=== PATIENT | female | born 1955 | race Caucasian/White ===

== ENCOUNTER 2019-03-25 19:34 | Emergency (ER) | payer MEDICARE, BC ==
[2019-03-25] MEDS ORDERED: Aspirin 81 mg CHEW TAB* 81 MG TAB.CHEW PO ONE (19:51)
[2019-03-25 20:18] LABS: ABS Basophils 0.1 10^3/ul (0-0.2); ABS Eosinophils 0.4 10^3/ul (0-0.6); ABS Lymphocytes 2.5 10^3/ul (1.0-4.8); ABS Monocytes 0.6 10^3/ul (0-0.8); ABS Neutrophils 4.5 10^3/ul (1.5-7.7); Eosinophil % 5.1 %; Hematocrit 42 % (35-47); Hemoglobin 14.4 g/dL (12.0-16.0); Lymphocyte % 31.1 %; Mean Corpuscular HGB Conc 34 g/dL (31-36); Mean Corpuscular Hemoglobin 31 pg (27-31); Mean Corpuscular Volume 89 fL (80-97); Mean Platelet Volume 7.7 fL (7.4-10.4); Nucleated Red Blood Cells % 0.1; Platelet Count 252 10^3/uL (150-450); Red Blood Count 4.71 10^6 /uL (3.70-4.87); Red Cell Distribution Width 13 % (10-15); White Blood Count 8.1 10^3/uL (3.5-10.8)
--- OUTSIDE RECORDS SUMMARY | 2019-03-25 20:27 | XMS REPORT | Summary of Care ---
:1955 Author Organization [facility] Address [address] [place] [address] Care Team Providers Name Role Phone Giovani Fragoso MD Primary Care Provider Reason for Visit Reason Comments Follow Up f/u B/P Encounter Details Date Type Department Care Team Description 03/11/2019 Office Visit [facility] Beatris Mulligan, Essential hypertension Practice [facility] [employer] (Primary Dx) [address] [facility] [address] [facility] [address] [place] [address] [phone] Allergies Active Allergy Reactions Severity Noted Date Comments No Known Allergies Other 10/23/2007 documented as of this encounter (statuses as of 03/11/2019) Medications Medication Sig Dispensed Refills Start Date End Date Status metoprolol succinate Take 1 Tab by 90 Tab 3 04/24/2018 Active (TOPROL XL) 50 MG Oral mouth DAILY. TABLET SR 24 HRIndications: Essential hypertension Additional information Patient taking differently: 25 mg Oral DAILY, Reported on 11/20/2018 8:25 AM triamcinolone Apply twice 80 g 5 09/08/2018 Active (KENALOG,ARISTOCORT) 0.1 % daily Apply externally Cream levothyroxine (SYNTHROID) Take 1 Tab by 90 Tab 1 11/20/2018 Active 88 MCG Oral Tab mouth BEFORE BREAKFAST. lisinopril (PRINIVIL, Take 1 Tab by 30 Tab 5 03/11/2019 Active ZESTRIL) 10 MG Oral Tab mouth TWICE DAILY. citalopram (CELEXA) 20 MG Take 1 Tab by 90 Tab 3 04/24/2018 Discontinued Oral TabIndications: mouth DAILY. 019 Anxiety and depression lisinopril (PRINIVIL, Take 1 Tab by 30 Tab 5 10/20/2018 Discontinued ZESTRIL) 10 MG Oral Tab mouth DAILY. 019 (Reorder) documented as of this encounter (statuses as of 03/11/2019) Active Problems Problem Noted Date White coat syndrome with hypertension 08/15/2009 Acquired hypothyroidism 05/09/2008 Overview: Post -surgical Management Dr Min H[facility] Cancer of thyroid 11/26/2007 Overview: S/p subtotal thyroidectomy Dr Samaniego 12/30/07 Papillary carcinoma of thyroid Dr Min Hightower 01/28. Essential hypertension 10/23/2007 Panic Disorder 10/23/2007 Major depression in remission 10/23/2007 NEPHROLITHIASIS 10/23/2007 documented as of this encounter (statuses as of 03/11/2019) Resolved Problems Problem Noted Date Resolved Date Erythema migrans (Lyme disease) 01/04/2009 08/15/2009 Overview: 12/29. S/p doxycycline Chest pain, unspecified 02/01/2004 01/05/2008 Overview: Stress test negative documented as of this encounter (statuses as of 03/11/2019) Immunizations Name Administration Dates Next Due Adacel TdaP 03/09/2007 Influenza (IM) Preservative Free 03/11/2019, 04/24/2018, 04/14/2014, 05/11/2010 documented as of this encounter Social History Tobacco Use Types Packs/Day Years Used Date Never Smoker Smokeless Tobacco: Never Used Alcohol Use Drinks/Week oz/Week Comments Yes 3 Standard drinks or equivalent 3.0 Sex Assigned at Date Recorded Not on file Job Start Date Occupation Industry Not on file Not on file Not on file Travel History Travel Start Travel End No recent travel history available. documented as of this encounter Last Filed Vital Signs Vital Sign Reading Time Taken Comments Blood Pressure 190/110 03/11/2019 9:57 AM EDT Pulse 116 03/11/2019 9:57 AM EDT Temperature - - Respiratory Rate - - Oxygen Saturation 99% 03/11/2019 9:57 AM EDT Inhaled Oxygen Concentration - - Weight 64.9 kg (143 lb) 03/11/2019 9:57 AM EDT Height 162.6 cm (5' 4") 03/11/2019 9:57 AM EDT Body Mass Index 24.55 03/11/2019 9:57 AM EDT documented in this encounter Patient Instructions Patient InstructionsBeatris Vega FNP - 03/11/2019 9:40 AM EDTYou must take the lisinopril. Take twice a day. You are at risk for a stroke. Contnue metoprolol but take whole 50 mg tab. Follow up as needed. Send in BP results. Flu shot today. 12: 49 PM EDT documented in this encounter Progress Notes Beatris Vega FNP - 03/11/2019 9:40 AM EDT PATIENT: Dian Bush : 1955 DATE OF SERVICE: 03/11/2019 Chief Complaint Patient presents with Follow Up f/u B/P SUBJECTIVE: Dian Bush is a 64-y.o. female who is here for follow up of hypertension. She has white coat but home readings are elevated at times and she is now with headache and under a lot ofstress so might be willing to take BP meds. She has been fearful of side effects and toxins in meds. Now only on 25 mg metoprolol and just increased this from 12.5mg. She has not taken lisinopril as directed. The patient denies cough, chest pain, dyspnea, wheezing or hemoptysis. No dizziness or palpitations. Patient Active Problem List Diagnosis Date Noted White coat syndrome with hypertension 08/15/2009 Acquired hypothyroidism 05/09/2008 Post -surgical Management Dr Min Hightower [facility] Cancer of thyroid ([facility]) 11/26/2007 S/p subtotal thyroidectomy Dr Samaniego 12/30/07 Papillary carcinoma of thyroid Dr Min Hightower 01/28. Essential hypertension 10/23/2007 Panic Disorder 10/23/2007 Major depression in remission ([facility]) 10/23/2007 NEPHROLITHIASIS 10/23/2007 Current Outpatient Medications Medication Sig levothyroxine (SYNTHROID) 88 MCG Oral Tab Take 1 Tab by mouth BEFORE BREAKFAST. lisinopril (PRINIVIL, ZESTRIL) 10 MG Oral Tab Take 1 Tab by mouth TWICE DAILY. metoprolol succinate (TOPROL XL) 50 MG Oral TABLET SR 24 HR Take 1 Tab by mouth DAILY. (Patient taking differently: Take 25 mg by mouth DAILY.) triamcinolone (KENALOG,ARISTOCORT) 0.1 % Apply externally Cream Apply twice daily No current facility-administered medications for this visit. OBJECTIVE: BP (!) 190/110 (BP Location: Left arm, Patient Position: Sitting) | Pulse (!) 116 | Ht 5' 4" (1.626 m) | Wt 143 lb (64.9 kg) | SpO2 99% | BMI 24.55 kg/m She is alert and in no distress. Chest is clear, no wheezing or rales. Normal symmetric air entry throughout both lung granados. Heart RRR. BP Readings from Last 3 Encounters: 03/11/19 (!) 190/110 11/20/18 (!) 160/94 10/20/18 (!) 180/110 ASSESSMENT: ICD-9-CM ICD-10-CM 1. Essential hypertension, poorly controlled and noncompliant with meds. 401.9 I10 I advised follow up in 2-3 weeks and she refused and said she would monitor at home and send in somereadings. Patient Instructions You must take the lisinopril. Take twice a day. You are at risk for a stroke. Contnue metoprolol but take whole 50 mg tab. Follow up as needed. Send in BP results. Flu shot today. Author: ASIF Harvey 03/11/2019 12:50 documented in this encounter Plan of Treatment Health Maintenance Due Date Last Done Comments ZOSTER IMMUNIZATION SERIES (1 2003 of 2) FALL RISK ASSESSMENT 2018 PNEUMOCOCCAL 65+YRS (1 of 2 - 2018 PCV13) INFLUENZA VACCINE (#1) 2019 04/24/2018, 04/14/2014, 05/11/2010 DEPRESSION SCREENING 04/24/2019 04/24/2018, 04/24/2018 LIPID DISORDER SCREENING 10/21/2019 10/20/2018, 03/25/2007 HPV IMMUNIZATION SERIES Aged Out No longer eligible based on patient's age to complete this topic MENINGOCOCCAL VACCINE IMM Aged Out No longer eligible based on patient's age to complete this topic documented as of this encounter Goals Goal Patient Goal Associated Recent Patient-Stated? Author Type Problems Progress Blood Pressure Blood Pressure 190/110 No Silvia, Cash 150/90 (03/11/2019 ASIF Spear 9:57 AM EDT) Note: This is an individualized treatment (blood pressure) goal for Dian Bush: Displayed above (on the left) is your goal for blood pressure control. Your most recent blood pressure is also shown above, on the right. You should try to achieve blood pressures that are lower than your goal listed above (on the left). Depression screen Depression 3 (04/24/2018 7:35 AM No Beatris Vega FNP (PHQ-9) total score < 5 EDT) Note: This is an individualized treatment (depression) goal for Dian Bush: Displayed above is your goal for a depression screening (PHQ-9) score that would indicate good control of your depression. Keep a regular sleep schedule Lifestyle No Beatris Vega FNP Note: This is an individualized lifestyle goal for Dian Bush: Please maintain a regular sleep schedule. This may help with some symptoms of depression. Take all prescribed medications as Self-management No Beatris Vega FNP directed Note: This is an individualized self-management goal for Dian Bush: Please take all prescribed medications as directed. 1. Do not skip doses. If you cannot afford your medications, talk with your doctor. 2. Use a pill reminder system such as a pill box if needed. Your pharmacist can help you with this. 3. Contact your Pharmacy 5 days before your medication runs out. If you cannot take your medications for any reasons, talk with your doctor. 4. Please bring all of your medication bottles and inhalers (or a list of all your medications/inhalers) with you to every visit. Potential barriers to meeting all of your care plan goals will continue to be addressed on an ongoing basis. documented as of this encounter Results Not on filedocumented in this encounter Visit Diagnoses Diagnosis Essential hypertension - Primary Unspecified essential hypertension documented in this encounter Insurance Payer Benefit Plan / Subscriber ID Effective Dates Phone Address Type Group MEDICARE MEDICARE PART A & xxxxxxxxxxx 2018-Present Medicare B LYNNUS ELZIABETHBS LYNNUS ELIZABETHBS xxxxxxxxxxxx 2014-Present [employer] Guarantor Name Account Type Relation to Date of Phone Billing Patient Address Dian Bush Personal/Family 1955 [phone] [address] (Home) [facility] [phone] [place], [place] (Work) [id number] documented as of this encounter
[2019-03-25 20:40] LABS: CKMB ng/mL 1.5 ng/mL (0.6-6.3)
--- NOTE | 2019-03-25 20:40 | ED ---
Hypertension - HPI Summary HPI Summary: 64 year old F [facility] accompanied by complaining of hypertension and not feeling well since measuring her blood pressure this evening which was 235 systolic. PMHx: hypertension, hypothyroidism and anxiety. Patient states she has been taking metoprolol 25 mg QD for 14 years. Patient states that the metoprolol 25 mg QD was not lowering her blood pressure, as her blood pressure would be in the 180s or 190s systolic. Patient states her doctor recently increased her dose of metoprolol to 50 mg daily QD. Patient states she has been taking half a pill in the morning, and the other half in the evening as the pharmacist said this would be fine. Patient states she also started taking lisinopril 10 mg BID on 03/11/19. Patient states that on 03/12/19, she measured her blood pressure with a new blood pressure cuff and it was 80s systolic, 60s diastolic. Patient states it usually takes her 2 months for her to adjust to her medications. Patient states she has been getting facial and tongue numbness, pressure under the top of her scalp, and hot flashes since changing her medications. She also states she has had these symptoms of numbness and hot flashes off and on for years. Patient denies chest pain. Patient was seen by primary care provider last week and everything was "normal" . Pt feels her symptoms are aggravated by medications for her hypertension. Symptoms alleviated by nothing. Patient states she had 1 glass of wine tonight. Vital signs while in room: HR 80 bpm, BP 2019/112, O2 sat 98% Home Medications Medication Instructions Recorded Confirmed Type Levothyroxine Sodium 88 mg PO DAILY 03/25/19 03/25/19 History Lisinopril 10 mg PO DAILY 03/25/19 03/25/19 History - History of Current Complaint Chief Complaint: EDHypertension Stated Complaint: HIGH BP PER PT Time Seen by Provider: 03/25/19 19:51 Hx Obtained From: Patient, Family/Package Crimper - Onset/Duration: Started Hours Ago, Atraumatic, Still Present Timing: Constant Reported Blood Pressure Prior To Arrival: systolic BP 235 at home Aggravating Factor(s): Other: - pt believes her medication for hypertension Alleviating Factor(s): Nothing Associated Signs & Symptoms: Negative - chest pain, Anxiety/Stress, Tingling, Other: - facial and tongue numbness, pressure under the top of her scalp, and hot flashes Current Medications: ACEI, Beta Francisco - Allergies/Home Medications Allergies/Adverse Reactions: Allergies Allergy/AdvReac Type Severity Reaction Status Date / Time No Known Allergies Allergy Verified 03/25/19 19:44 PMH/Surg Hx/FS Hx/Imm Hx Previously Healthy: No Endocrine/Hematology History: Reports: Hx Thyroid Disease Cardiovascular History: Reports: Hx Hypertension GI History: Reports: Hx Gall Bladder Disease - gallsones History: Reports: Hx Kidney Stones Sensory History: Reports: Hx Contacts or Glasses Opthamlomology History: Reports: Hx Contacts or Glasses Psychiatric History: Reports: Hx Anxiety - Surgical History Surgery Procedure, Year, and Place: total thyroidectomy. ectopic . C- sections x3 Infectious Disease History: No Infectious Disease History: Denies: Traveled Outside the [place] in Last 30 Days - Family History Known Family History: Positive: Cardiac Disease - [place] - Social History Lives: With Family Alcohol Use: Occasionally Alcohol Amount: wine Hx Substance Use: No Substance Use Type: Reports: None Hx Tobacco Use: No Smoking Status (MU): Never Smoked Tobacco Review of Systems Positive: Other - hot flashes, not feeling well Positive: Other - hypertension. Negative: Chest Pain Respiratory: Negative Gastrointestinal: Negative Positive: no symptoms reported Skin: Negative Neurological: Other - facial and tongue numbness, pressure under the top of her scalp; negative-headache Positive: Anxious - pt states she is anxious All Other Systems Reviewed And Are Negative: Yes Physical Exam - Summary Physical Exam Summary: Appearance: ill-appearing, no acute pain distress, thin. She was tearful. Skin: Warm, color reflects adequate perfusion, dry Head: Normal Head/Face inspection, atraumatic Eyes: Conjunctiva clear, pupils midpoint, EOMI, no nystagmus ENT: Normal inspection Neck: Supple, no nodes, no JVD Respiratory: Lungs clear, normal breath sounds, no respiratory distress Cardio: RRR, No murmur, pulses normal, brisk capillary refill Abdomen: Soft, nontender Bowel sounds: Present Musculoskeletal: Strength Intact/ROM intact, no calf tenderness, no edema. Psychological: Normal Neuro: Alert, Motor 5/5, sensation intact to light touch, speech clear and coherent, no facial droop, able to ambulate independentlly without limp, muscle tone normal, no focal deficit GCS: 15 Triage Information Reviewed: Yes Vital Signs On Initial Exam: Initial Vitals Temp Pulse Resp BP Pulse Ox 98.4 F 101 20 238/126 100 03/25/19 19:36 03/25/19 19:36 03/25/19 19:36 03/25/19 19:36 03/25/19 19:36 Vital Signs Reviewed: Yes Procedures - Sedation Patient Received Moderate/Deep Sedation with Procedure: No Diagnostics - Vital Signs Vital Signs Temp Pulse Resp BP Pulse Ox 03/25/19 19:36 98.4 F 101 20 238/126 100 - Laboratory Lab Results: Lab Results 03/25/19 Range/Units 20:05 WBC 8.1 (3.5-10.8) 10^3/uL RBC 4.71 (3.70-4.87) 10^6 /uL Hgb 14.4 (12.0-16.0) g/dL Hct 42 (35-47) % MCV 89 (80-97) fL MCH 31 (27-31) pg MCHC 34 (31-36) g/dL RDW 13 (10-15) % Plt Count 252 (150-450) 10^3/uL MPV 7.7 (7.4-10.4) fL Neut % (Auto) 55.1 % Lymph % (Auto) 31.1 % Bennett % (Auto) 7.8 % Eos % (Auto) 5.1 % Baso % (Auto) 0.9 % Absolute Neuts (auto) 4.5 (1.5-7.7) 10^3/ul Absolute Lymphs (auto) 2.5 (1.0-4.8) 10^3/ul Absolute Monos (auto) 0.6 (0-0.8) 10^3/ul Absolute Eos (auto) 0.4 (0-0.6) 10^3/ul Absolute Basos (auto) 0.1 (0-0.2) 10^3/ul Absolute Nucleated RBC 0.0 10^3/ul Nucleated RBC % 0.1 Result Diagrams: 03/25/19 20:05 03/25/19 20:01 Lab Statement: Any lab studies that have been ordered have been reviewed, and results considered in the medical decision making process. - Radiology CXR Radiology Interpretation Completed By: ED Physician Summary of Radiographic Findings: No acute process. Pending official report - CT Brain CT Interpretation Completed By: Radiologist Summary of CT Findings: 1. No acute intracranial abnormality. 2. Mild chronic small vessel ischemic disease. ED physician has reviewed this report. - EKG 1946 Cardiac Rate: NL - 92 EKG Rhythm: Sinus Rhythm ST Segment: Non-Specific Ectopy: None EKG Comparison: No Significant Change - 12/08/07 Summary of EKG Findings: An EKG at 19:47 reveals sinus rhythm, nml AV/IV CT, nml QTc, and nml axis. No acute changes. Poor R wave progression V1-V3. Similar to prior EKG on 12/08/07. ED MD has reviewed and interpreted this EKG. Re-Evaluation - Re-Evaluation First Eval Re-Evaluation Time: 22:12 Change: Improved Comment: Pt still concerned about side effects of medications. Pt has no ARAIZA, no CP, no SOB, no weakness, no speech difficulties. Given results of her CT. remains in the room. Pt given labetalol 10mg IV x1 again, and Ativan 1mg po. Pt agrees to both. Second Eval Re-Evaluation Time: 22:20 Change: Improved Comment: BP is 140/85. Pt and agree with DC and to follow up with PCP regarding further BP medication management. Hypertension Course/Dx - Course Course Of Treatment: 64 year old F complains of hypertension, facial and tongue numbness, pressure located under the top of her scalp, and hot flashes since increasing her dose of metoprolol to 50 mg QD and started taking lisinopril 10 mg BID. Upon exam, the patient is very hypertensive, tearful and thin but no cardio, pulmonary or neurologic findings on exam. Patient medications reviewed this visit. Nurses notes reviewed. Allergies noted. High blood pressure noted. Bloodwork results with no significant abnormalities except for potassium 3.4 and BUN/creatinine 31.0. Her TSH and d-dimer are normal. Toxicology results with no significant abnormalities, meaning alcohol level is <10, with pt having a glass of wine with dinner. An EKG at 19:47 reveals sinus rhythm, nml AV/IV CT , nml QTc, and nml axis. No acute changes. Similar to prior EKG on 12/08/07. CXR shows no acute process, ED MD preliminary reading. CT Brain shows, per radiologist: 1. No acute intracranial abnormality. 2. Mild chronic small vessel ischemic disease. In the ED course, the patient was given aspirin 324 mg PO and labetalol 10 mg IV x2, and Ativan 1 mg PO. BP was 140/85 after those medications administered, and pt was DC home with instructions to f/u with her PCP for further medication management. - Diagnoses Differential Diagnosis/HQI PQRI: Cerebral Bleed, Hypertensive Crisis, Hyperthyroidism, Myocardial Infarction, Other - CVA Provider Diagnoses: Hypertensive urgency, Paresthesia, Hypokalemia - Critical Care Time Critical Care Time: 30-74 min - 30 mins Discharge ED - Sign-Out/Discharge Documenting (check all that apply): Patient Departure - Discharge Plan Condition: Stable Disposition: HOME Patient Education Materials: Hypertensive Crisis (ED) Referrals: Giovani Fragoso MD [Primary Care Provider] - 1 Day Additional Instructions: We gave you labetalol 10mg IV twice and an ativan 1mg tablet while you were in the ER. Your blood pressure came down to 140/85 with a pulse of 63. Your CT scan did not show any sign of a stroke or acute abnormalities. Have definite follow up with Dr. Fragoso. Please return to the ER if any new or worsening symptoms. - Billing Disposition and Condition Condition: STABLE Disposition: Home - Attestation Statements Document Initiated by Osbaldoibe: Yes Documenting Scribe: Nadia Paulino Provider For Whom Fern is Documenting (Include Credential): Jacinta Lopez MD Scribe Attestation: Nadia Luciano, scribed for Jacinta Lopez MD on 04/18/19 at 1715. Scribe Documentation Reviewed: Yes Provider Attestation: The documentation as recorded by the Nadia piper accurately reflects the service I personally performed and the decisions made by me, Jacinta Lopez MD Status of Scribe Document: Viewed
[2019-03-25 20:41] LABS: ALT 17 U/L (7-52); AST 17 U/L (13-39); Albumin 4.6 g/dL (3.2-5.2); Albumin/Globulin Ratio 1.6 (1-3); Alkaline Phosphatase 53 U/L (34-104); Anion Gap 8 mmol/L (2-11); Blood Urea Nitrogen 22 mg/dL (6-24); CO2 Carbon Dioxide 28 mmol/L (22-32); Calcium 9.5 mg/dL (8.6-10.3); Chloride 103 mmol/L (101-111); Creatine Kinase 58 U/L (10-223); EGFR African American 99.7 (>60); EGFR Non-African American 82.4 (>60); Globulin 2.8 g/dL (2-4); Glucose 100 mg/dL (70-100); Magnesium 2.2 mg/dL (1.9-2.7); Potassium 3.4 mmol/L (3.5-5.0); Sodium 139 mmol/L (135-145); Total Protein 7.4 g/dL (6.4-8.9)
[2019-03-25 20:55] LABS: INR 0.94 (0.82-1.09)
[2019-03-25 20:55] LABS: TSH (Thyroid Stimulating Horm) 0.99 mcIU/mL (0.34-5.60)
[2019-03-25] MEDS ORDERED: Labetalol IV* 5 MG/ML 20 ML VIAL IV PUSH ONE ×2 (20:55→22:02)
[2019-03-25 20:56] LABS: Activated Partial Thrombo Time 30.6 seconds (26.0-38.0)
[2019-03-25 21:34] LABS: Alcohol < 10 mg/dL (<10)
[2019-03-25] MEDS ORDERED: LORazepam TAB(*) 1 MG PO ONE (22:03)
[2019-03-25 22:36] VITALS: BP 140/85
== END 2019-03-25 22:45 | disposition home or self-care (01) ==
LOC: ED 19:34
DX: I16.0 Hypertensive urgency (principal); R20.2 Paresthesia of skin; Z79.899 Other long term (current) drug therapy; E03.9 Hypothyroidism, unspecified; Z87.442 Personal history of urinary calculi
CPT/HCPCS: 36415; 70450; 71045; 80053; 80320; 82550; 82553; 83605; 83735; 83880; 84443; 84484; 85025; 85379; 85610; 85730; 93005; 96374; 96376; 99284; A9270-GY; G0480

== ENCOUNTER 2019-04-09 15:12 | Emergency (ER) | payer MEDICARE, BC ==
--- OUTSIDE RECORDS SUMMARY | 2019-04-09 15:29 | XMS REPORT | Summary of Care ---
:1955 Author Organization [facility] Address [address] [address] Care Team Providers Name Role Phone Giovani Fragoso Primary Care Provider Reason for Visit Reason Comments Anxiety Patient states her blood pressure is extremely high when she is anxious. Encounter Details Date Type Department Care Team Description 04/07/2019 Office Visit [place] [facility] Giovani Fragoso, Essential hypertension (Primary Dx); Medicine Hypokalemia; [address] [facility] Panic Disorder; [place], [place] [id number] [place] [id number] Moderate episode of recurrent major depressive disorder (HCC); [phone] Situational anxiety; White coat syndrome with hypertension Allergies Active Allergy Reactions Severity Noted Date Comments No Known Allergies Other 10/23/2007 documented as of this encounter (statuses as of 04/07/2019) Medications Medication Sig Dispensed Refills Start Date End Date Status triamcinolone Apply twice 80 g 5 09/08/2018 Active (KENALOG,ARISTOCORT daily ) 0.1 % Apply externally Cream levothyroxine Take 1 Tab 90 Tab 1 11/20/2018 Active (SYNTHROID) 88 MCG by mouth Oral Tab BEFORE BREAKFAST. lisinopril Take 1 Tab 30 Tab 5 04/07/2019 Active (PRINIVIL, ZESTRIL) by mouth 10 MG Oral Tab EVERY MORNING. metoprolol Take 0.5 90 Tab 3 04/07/2019 Active succinate (TOPROL Tabs by XL) 50 MG Oral mouth TWICE TABLET SR 24 DAILY. HRIndications: Essential hypertension metoprolol Take 1 Tab 90 Tab 3 04/24/2018 Discontinued succinate (TOPROL by mouth 9 (Dose Adjustment) XL) 50 MG Oral DAILY. TABLET SR 24 HRIndications: Essential hypertension lisinopril Take 0.5 30 Tab 5 03/16/2019 Discontinued (PRINIVIL, ZESTRIL) Tabs by 9 (Dose Adjustment) 10 MG Oral Tab mouth DAILY. documented as of this encounter (statuses as of 04/07/2019) Active Problems Problem Noted Date White coat syndrome with hypertension 08/15/2009 Acquired hypothyroidism 05/09/2008 Overview: Post -surgical Management Dr Min Hightower [facility] Cancer of thyroid 11/26/2007 Overview: S/p subtotal thyroidectomy Dr Samaniego 12/30/[address] of thyroid [address] Min Hightower 01/28. Essential hypertension 10/23/2007 Panic Disorder 10/23/2007 Moderate episode of recurrent major depressive disorder 10/23/2007 NEPHROLITHIASIS 10/23/2007 documented as of this encounter (statuses as of 04/07/2019) Resolved Problems Problem Noted Date Resolved Date Erythema migrans (Lyme disease) 01/04/2009 08/15/2009 Overview: 12/29. S/p doxycycline Chest pain, unspecified 02/01/2004 01/05/2008 Overview: Stress test negative documented as of this encounter (statuses as of 04/07/2019) Immunizations Name Administration Dates Next Due Adacel [...] Sign Reading Time Taken Comments Blood Pressure 170/110 04/07/2019 2:27 PM EDT Pulse 78 04/07/2019 2:27 PM EDT Temperature - - Respiratory Rate - - Oxygen Saturation - - Inhaled Oxygen Concentration - - Weight 65.3 kg (144 lb) 04/07/2019 2:27 PM EDT Height 162.6 cm (5' 4") 04/07/2019 2:27 PM EDT Body Mass Index 24.72 04/07/2019 2:27 PM EDT documented in this encounter Patient Instructions Patient InstructionsGiovani Fragoso MD - 04/07/2019 2:20 PM EDT thyroid blood level is ok continue current medications The blood pressure is too high Please check your blood pressure at home, mall, pharmacy, or grocery store three times per week. Write these numbers down and bring them into your next doctor visit. The goal blood pressure for you is less than : 140/90 Contact a counsellor or psychologist. You need to find one and work with one whose style works for you. This is a very personal choice: Brandan John PhD. [phone] Dinorah Dc PhD [phone] [facility] [phone] Lou[facility] [phone] [facility] [phone]. Cheryl Hardy PhD Continue lisinopril and metoprolol documented in this encounter Progress Notes Giovani Fragoso MD - 04/07/2019 2:20 PM EDT PATIENT: Dian Bush : 1955 DATE OF SERVICE: 04/07/2019 CHIEF COMPLAINT: Chief Complaint Patient presents with Anxiety Patient states her blood pressure is extremely high when she is anxious. Subjective HISTORY OF PRESENT ILLNESS: Dian Bush is a 64-y.o. female. HPI Increase anxiety and elevated home blood pressure readings up to 160-170/80s range she is under stress due to her mom being ill and elderly She reduced dose of lisinopril to once daily due to low blood pressure readings now using [id number] mg in am She is not using beta lizzy as prescribed but using 1/2 50 mg twice daily And she feels this givers her nightmares She stopped selective serotonin receptor inhibitor several months back due to side effects She is not seeing a therapist Denies alcohol or drug abuse No cardiovascular symptoms she went to [facility] emergency room for headache and had negative brain ct Patient Active Problem List Diagnosis Essential hypertension Panic Disorder Moderate episode of recurrent major depressive disorder (HCC) NEPHROLITHIASIS Cancer of thyroid (HCC) Acquired hypothyroidism White coat syndrome with hypertension Family History Problem Relation Age of Onset Breast Cancer Mother 60??? Cancer Mother Heart Mother CHF Current Outpatient Medications Medication Sig levothyroxine (SYNTHROID) 88 MCG Oral Tab Take 1 Tab by mouth BEFORE BREAKFAST. lisinopril (PRINIVIL, ZESTRIL) 10 MG Oral Tab Take 1 Tab by mouth EVERY MORNING. metoprolol succinate (TOPROL XL) 50 MG Oral TABLET SR 24 HR Take 0.5 Tabs by mouth TWICE DAILY. triamcinolone (KENALOG,ARISTOCORT) 0.1 % Apply externally Cream Apply twice daily No current facility-administered medications for this visit. Allergies Allergen Reactions Nka [No Known Allergies] Other Social History Socioeconomic History Marital status: Spouse name: Not on file Number of children: Not on file Years of education: Not on file Highest education level: Not on file Occupational History Not on file Social Needs Financial resource strain: Not on file Food insecurity: Worry: Not on file Inability: Not on file Transportation needs: Medical: Not on file Non-medical: Not on file Tobacco Use Smoking status: Never Smoker Smokeless tobacco: Never Used Substance and Sexual Activity Alcohol use: Yes Alcohol/week: 3.0 standard drinks Types: 3 Standard drinks or equivalent per week Drug use: No Sexual activity: Yes Partners: Male Lifestyle Physical activity: Days per week: Not on file Minutes per session: Not on file Stress: Not on file Relationships Social connections: Talks on phone: Not on file Gets together: Not on file Attends scientologist service: Not on file Active member of club or organization: Not on file Attends meetings of clubs or organizations: Not on file Relationship status: Not on file Intimate partner violence: Fear of current or ex partner: Not on file Emotionally abused: Not on file Physically abused: Not on file Forced sexual activity: Not on file Other Topics Concern Back Care Not Asked Bike Helmet Not Asked Blood Transfusions Not Asked Caffeine Concern Not Asked Exercise No Comment: walks dog daily Hobby Hazards Not Asked International Travel Not Asked Service Not Asked Occupational Exposure Not Asked Seat Belt Yes Self-Exams Not Asked Sleep Concern No Special Diet No Stress Concern Yes Comment: intermittent panic sxs Weight Concern No Social History Narrative Lives in [place], [place] Works twice a week as a nanny Cares for grandchildren several days per week ROS no chest pain no shortness of breath [facility] emergency room blood normal except for potassium Level 3.4 Objective PHYSICAL EXAM: VITALS: BP (!) 170/110 | Pulse 78 | Ht 5' 4" (1.626 m) | Wt 144 lb (65.3 kg ) | BMI 24.72 kg/m Body mass index is 24.72 kg/m. Physical Exam Mental Status: depressed mood, anxious. MARIANELA 7 Score (generalized anxiety disorder) is: 06/12 PHQ-9 score is: 11 no suicidal ideation S1 and S2 normal, no murmurs, clicks, gallops or rubs. Regular rate and rhythm. Chest is clear; no wheezes or rales. No edema or JVD. ASSESSMENT / IMPRESSION: ICD-9-CM ICD-10-CM 1. Essential hypertension she declines further medications due to fear of side effects Use metoprolol 25 mg twice daily And lisinopril 10 mg and control anxiety 401.9 I10 metoprolol succinate (TOPROL XL) 50 MG Oral TABLET SR 24 HR 2. Hypokalemia eat bananas daily reassurance 276.8 E87.6 3. Panic Disorder 300.01 F41.0 4. Moderate episode of recurrent major depressive disorder (HCC) she is resistant to therapist or counseling referral 296.32 F33.1 5. Situational anxiety 300.09 F41.8 6. White coat syndrome with hypertension 401.9 I10 Patient Instructions thyroid blood level is ok continue current medications The blood pressure is too high Please check your blood pressure at home, mall, pharmacy, or grocery store three times per week. Write these numbers down and bring them into your next doctor visit. The goal blood pressure for you is less than : 140/90 Contact a counsellor or psychologist. You need to find one and work with one whose style works for you. This is a very personal choice: Brandan John PhD. [phone] Dinorah Dc PhD [phone] [facility] [phone] Sanjiv Hannah [facility] [phone] [facility] [phone]. Cheryl Hardy PhD Continue lisinopril and metoprolol Giovani Fragoso MD 04/07/2019 14:51 documented in this encounter Plan of Treatment Health Maintenance Due Date Last Done Comments ZOSTER IMMUNIZATION SERIES 2003 (1 of 2) FALL RISK ASSESSMENT 2018 PNEUMOCOCCAL 65+YRS (1 of 2 2018 - PCV13) DEPRESSION SCREENING 04/24/2019 04/24/2018, 04/24/2018 LIPID DISORDER SCREENING 10/21/2019 10/20/2018, 03/25/2007 INFLUENZA VACCINE Completed 03/11/2019, 04/24/2018, 04/14/2014, Additional history exists HPV IMMUNIZATION SERIES Aged Out No longer eligible based on patient's age to complete this topic MENINGOCOCCAL VACCINE IMM Aged Out No longer eligible based on patient's age to complete this topic documented as of this encounter Goals Goal Patient Goal Associated Recent Patient-Stated? Author Type Problems Progress Blood Pressure Blood Pressure 170/110 No Silvia, < 150/90 (04/07/2019 ASIF Spear 2:27 PM EDT) Note: This is an individualized treatment [...] Essential hypertension - Primary Unspecified essential hypertension Hypokalemia Hypopotassemia Panic Disorder Panic disorder without agoraphobia Moderate episode of recurrent major depressive disorder (HCC) Situational anxiety Other anxiety states White coat syndrome with hypertension documented in this encounter Insurance Payer Benefit Plan / Subscriber ID Effective Dates Phone Address Type Group MEDICARE MEDICARE PART A & xxxxxxxxxxx 2018-Present Medicare B [employer] xxxxxxxxxxxx 2014-Present [employer] Guarantor Name Account Type Relation to Date of Phone Billing Patient Address Rachelle,Dian Personal/Family 1955 [id number] (Home) [place] [phone] [place], [place] (Work) [id number] documented as of this encounter
[2019-04-09 17:25] LABS: ABS Basophils 0.1 10^3/ul (0-0.2); ABS Eosinophils 0.3 10^3/ul (0-0.6); ABS Monocytes 0.7 10^3/ul (0-0.8); ABS Neutrophils 6.1 10^3/ul (1.5-7.7); Hematocrit 43 % (35-47); Hemoglobin 14.5 g/dL (12.0-16.0); Lymphocyte % 21.8 %; Mean Corpuscular HGB Conc 34 g/dL (31-36); Mean Corpuscular Hemoglobin 30 pg (27-31); Mean Corpuscular Volume 88 fL (80-97); Mean Platelet Volume 7.7 fL (7.4-10.4); Platelet Count 257 10^3/uL (150-450); Red Blood Count 4.81 10^6 /uL (3.70-4.87); Red Cell Distribution Width 13 % (10-15); White Blood Count 9.1 10^3/uL (3.5-10.8)
[2019-04-09 17:42] LABS: Albumin 4.6 g/dL (3.2-5.2); Albumin/Globulin Ratio 1.4 (1-3); Calcium 9.7 mg/dL (8.6-10.3); EGFR African American 114.4 (>60); EGFR Non-African American 94.5 (>60); Globulin 3.3 g/dL (2-4); Total Bilirubin 0.4 mg/dL (0.2-1.0); Total Protein 7.9 g/dL (6.4-8.9)
[2019-04-09] MEDS ORDERED: LORazepam INJ* 2 MG/ML 1 ML VIAL IV ONE (18:18)
[2019-04-09] MEDS ORDERED: Lorazepam PYXIS KEY PRN (18:18)
[2019-04-09] MEDS ORDERED: Labetalol IV* 5 MG/ML 20 ML VIAL IV PUSH ONE (18:18)
--- NOTE | 2019-04-09 19:37 | ED ---
Hypertension - HPI Summary HPI Summary: Patient complains of acute anxiety and elevated blood pressure starting today. Denies fever, cough, sore throat, CP, SOB, N/C/D, abdominal pain, change in hearing, change in BM. Patient has history of hypertension and anxiety. Currently taking metoprolol lisinopril for hypertension. Not currently taking any medications for anxiety, stating she discontinued her anxiety meds 1 month ago because she was feeling good. States she has contacted her primary care regarding resuming anxiety medications, but has been referred to mental health therapy. Has not yet received callback for mental health therapy. Medical history is HTN, hypothyroid. - History of Current Complaint Chief Complaint: EDHypertension Stated Complaint: HIGH BLOOD PRESURE Time Seen by Provider: 04/09/19 17:43 Hx Obtained From: Patient Onset/Duration: Started Hours Ago Timing: Constant Aggravating Factor(s): Nothing Alleviating Factor(s): Nothing Associated Signs & Symptoms: Anxiety/Stress Related Hx: Similar Episode - Allergies/Home Medications Allergies/Adverse Reactions: Allergies Allergy/AdvReac Type Severity Reaction Status Date / Time No Known Allergies Allergy Verified 03/25/19 19:44 Home Medications: Home Medications Levothyroxine TAB* [Synthroid TAB*] 88 mcg PO DAILY 04/09/19 [History Confirmed 04/09/19] Lisinopril TAB* [Prinivil TAB*] 10 mg PO DAILY 04/09/19 [History Confirmed 04/09] PMH/Surg Hx/FS Hx/Imm Hx Endocrine/Hematology History: Reports: Hx Thyroid Disease Cardiovascular History: Reports: Hx Hypertension History: Reports: Hx Kidney Stones, Other Problems/Disorders - gallstones Sensory History: Reports: Hx Contacts or Glasses Opthamlomology History: Reports: Hx Contacts or Glasses EENT History: Denies: Hx Deafness Neurological History: Denies: Hx Dementia - Surgical History Surgery Procedure, Year, and Place: total thyroidectomy. ectopic . C- sections x3 Infectious Disease History: No Infectious Disease History: Denies: Traveled Outside the [place] in Last 30 Days - Family History Known Family History: Positive: Cardiac Disease - [place] - Social History Alcohol Use: Occasionally Alcohol Amount: wine Substance Use Type: Reports: None Hx Tobacco Use: No Smoking Status (MU): Never Smoked Tobacco Review of Systems Constitutional: Negative Eyes: Negative ENT: Negative Cardiovascular: Negative Respiratory: Negative Gastrointestinal: Negative Genitourinary: Negative Musculoskeletal: Negative Skin: Negative Neurological: Negative Positive: Anxious All Other Systems Reviewed And Are Negative: Yes Physical Exam - Summary Physical Exam Summary: Patient highly anxious. Triage Information Reviewed: Yes Vital Signs On Initial Exam: Initial Vitals Temp Pulse Resp BP Pulse Ox 98.2 F 117 18 224/132 99 04/09/19 15:17 04/09/19 15:17 04/09/19 15:17 04/09/19 15:17 04/09/19 15:17 Vital Signs Reviewed: Yes Appearance: Positive: Well-Appearing Skin: Positive: Warm Head/Face: Positive: Normal Head/Face Inspection Eyes: Positive: Normal Neck: Positive: Supple Respiratory/Lung Sounds: Positive: Clear to Auscultation Cardiovascular: Positive: Normal Abdomen Description: Positive: Nontender Musculoskeletal: Positive: Normal Neurological: Positive: Normal Psychiatric: Positive: Normal AVPU Assessment: Alert - Francis Coma Scale Best Eye Response: 4 - Spontaneous Best Motor Response: 6 - Obeys Commands Best Verbal Response: 5 - Oriented Coma Scale Total: 15 Procedures - Sedation Patient Received Moderate/Deep Sedation with Procedure: No Diagnostics - Vital Signs Vital Signs Temp Pulse Resp BP Pulse Ox 04/09/19 19:11 92 18 166/111 97 04/09/19 19:00 85 15 97 04/09/19 18:42 19 170/101 04/09/19 18:35 24 04/09/19 18:12 23 232/160 04/09/19 18:00 13 04/09/19 17:37 19 04/09/19 16:57 98.8 F 79 20 215/129 99 04/09/19 15:17 98.2 F 117 18 224/132 99 - Laboratory Lab Results: Lab Results 04/09/19 04/09/19 Range/Units 17:17 17:17 WBC 9.1 (3.5-10.8) 10^3/uL RBC 4.81 (3.70-4.87) 10^6 /uL Hgb 14.5 (12.0-16.0) g/dL Hct 43 (35-47) % MCV 88 (80-97) fL MCH 30 (27-31) pg MCHC 34 (31-36) g/dL RDW 13 (10-15) % Plt Count 257 (150-450) 10^3/uL MPV 7.7 (7.4-10.4) fL Neut % (Auto) 67.3 % Lymph % (Auto) 21.8 % [place] % (Auto) 7.3 % Eos % (Auto) 3.0 % Baso % (Auto) 0.6 % Absolute Neuts (auto) 6.1 (1.5-7.7) 10^3/ul Absolute Lymphs (auto) 2.0 (1.0-4.8) 10^3/ul Absolute Monos (auto) 0.7 (0-0.8) 10^3/ul Absolute Eos (auto) 0.3 (0-0.6) 10^3/ul Absolute Basos (auto) 0.1 (0-0.2) 10^3/ul Absolute Nucleated RBC 0.0 10^3/ul Nucleated RBC % 0.0 Sodium 140 (135-145) mmol/L Potassium 4.0 (3.5-5.0) mmol/L Chloride 104 (101-111) mmol/L Carbon Dioxide 30 (22-32) mmol/L Anion Gap 6 (2-11) mmol/L BUN 17 (6-24) mg/dL Creatinine 0.63 (0.51-0.95) mg/dL Est GFR ( Amer) 114.4 (>60) Est GFR (Non-Af Amer) 94.5 (>60) BUN/Creatinine Ratio 27.0 H (8-20) Glucose 105 H (70-100) mg/dL Calcium 9.7 (8.6-10.3) mg/dL Total Bilirubin 0.40 (0.2-1.0) mg/dL AST 17 (13-39) U/L ALT 18 (7-52) U/L Alkaline Phosphatase 51 (34-104) U/L Total Protein 7.9 (6.4-8.9) g/dL Albumin 4.6 (3.2-5.2) g/dL Globulin 3.3 (2-4) g/dL Albumin/Globulin Ratio 1.4 (1-3) Result Diagrams: 04/09/19 17:17 04/09/19 17:17 Lab Statement: Any lab studies that have been ordered have been reviewed, and results considered in the medical decision making process. Hypertension Course/Dx - Course Course Of Treatment: Patient complains of acute anxiety and elevated blood pressure starting today. Denies fever, cough, sore throat, CP, SOB, N/C/D, abdominal pain, change in hearing, change in BM. Patient has history of hypertension and anxiety. Currently taking metoprolol lisinopril for hypertension. Not currently taking any medications for anxiety, stating she discontinued her anxiety meds 1 month ago because she was feeling good. States she has contacted her primary care regarding resuming anxiety medications , but has been referred to mental health therapy. Has not yet received callback for mental health therapy. Medical history is HTN, hypothyroid. Patient initially tachycardic with elevated blood pressure up to 224/132. Vital signs otherwise unremarkable. Tachycardia and elevated blood pressure resolved with Ativan 1 mg IV and labetalol 10 mg IV. Anxiety also resolved. Patient advised to follow-up with primary care and mental health provider for management of anxiety and hypertension. Patient understands and soap plan. Rx for hydroxyzine as bridge. - Diagnoses Provider Diagnoses: Anxiety, Hypertension Discharge ED - Sign-Out/Discharge Documenting (check all that apply): Patient Departure - Discharge Plan Condition: Stable Disposition: HOME Prescriptions: hydrOXYzine HCl [Hydroxyzine HCl] 50 mg PO TID 10 Days #30 tablet Patient Education Materials: Hypertension (ED), Anxiety (ED) Referrals: Giovani Fragoso MD [Primary Care Provider] - Additional Instructions: Follow-up with primary care of for management of anxiety and hypertension. Return to the ED for any new or worsening symptoms. - Billing Disposition and Condition Condition: STABLE Disposition: Home
[2019-04-09 20:14] VITALS: BP 160/98
== END 2019-04-09 20:14 | disposition home or self-care (01) ==
LOC: ED 15:12
DX: F41.9 Anxiety disorder, unspecified (principal); I10 Essential (primary) hypertension; E03.9 Hypothyroidism, unspecified; Z79.890 Hormone replacement therapy; Z79.899 Other long term (current) drug therapy
CPT/HCPCS: 36415; 80053; 85025; 96374; 96375; 99283; J2060